=== PATIENT | female | born 1995 | race Two or more races ===

== ENCOUNTER 2020-01-08 17:16 | Outpatient (CLI) | payer OTHER, SELFPAY ==
--- NOTE | ~2020-01-08 | US_ITS ---
EXAMINATION: US OB <=14 wk fetus w TV EXAM DATE: 01/08/2020 18:56 INDICATION: Spontaneous . 1st trimester. TECHNIQUE: Pelvic obstetrical transabdominal sonogram was performed by a technologist. There are mu ltiple grayscale and Doppler images available for interpretation. There are no earlier studies of th is gestation for comparison. FINDINGS: The uterus measures 11.7 x 4.6 x 6.8 cm, with an intrauterine gestation sac identified whic h has a flattened shape. Yolk sac and pole are identified, but no heart tones were identi fied. No measurement of pole or gestation sac was obtained. If this information is needed then patient can return and an addendum added. Based on images available pole measures approximate ly 3 cm. The ovaries were not identified. IMPRESSION: demise. Reviewed, dictated and finalized at location A. IMPRESSION: demise.
== END 2020-01-08 17:17 | disposition home or self-care (01) ==
PROVIDERS: PCP Obstetrics & Gynecology; Visit Provider Obstetrics & Gynecology
DX: O03.9 Complete or unspecified spontaneous abortion without complication (principal)
CPT/HCPCS: 76801; 76817

== ENCOUNTER 2020-01-29 16:34 | Outpatient (CLI) | payer OTHER, SELFPAY ==
--- NOTE | ~2020-01-29 | US_ITS ---
EXAMINATION: US pelvic complete w TV DATE: 01/29/2020 17:21 INDICATION: Missed . TECHNIQUE: Multiple transabdominal and transvaginal sonographic images of the pelvis were obtained. COMPARISON: Ultrasound 01/08/2020 FINDINGS: TRANSABDOMINAL ULTRASOUND: The uterus measures 6.9 x 4.1 x 4.2 cm. There is no free fluid in the pelvis. TRANSVAGINAL ULTRASOUND: The endometrial complex measures 4 mm in thickness. There are nabothian cysts in the cervix. The righ t ovary measures 2.6 x 1.6 x 1.7 cm. The left ovary is not visualized. IMPRESSION: 1. No retained products of conception. Reviewed, dictated and finalized at location A. T WORKER
== END 2020-01-29 16:35 | disposition home or self-care (01) ==
PROVIDERS: Visit Provider Obstetrics & Gynecology
DX: O02.1 Missed abortion (principal)
CPT/HCPCS: 76830; 76856

== ENCOUNTER 2020-05-08 12:58 | Outpatient (CLI) | payer OTHER, SELFPAY ==
[2020-05-09 18:20] LABS: SARS-CoV-2 RNA PCR Negative
== END 2020-05-08 12:59 | disposition home or self-care (01) ==
LOC: CHSLAB 13:00
PROVIDERS: PCP Nurse Practitioner Family; Visit Provider Nurse Practitioner Family
DX: Z20.822 Contact with and (suspected) exposure to COVID-19 (principal)
CPT/HCPCS: C9803; U0003; U0005

== ENCOUNTER 2020-05-19 10:24 | Outpatient (CLI) | payer OTHER, SELFPAY ==
[2020-05-20 14:42] LABS: SARS-CoV-2 RNA PCR Negative
== END 2020-05-19 10:25 | disposition home or self-care (01) ==
PROVIDERS: PCP Nurse Practitioner Family; Visit Provider Nurse Practitioner Family
DX: Z20.822 Contact with and (suspected) exposure to COVID-19 (principal)
CPT/HCPCS: C9803; U0003; U0005

== ENCOUNTER 2020-12-23 09:25 | Outpatient (CLI) | payer OTHER, SELFPAY ==
[2020-12-23 10:38] LABS: SARS-CoV-2 RNA PCR Negative (Negative)
== END 2020-12-23 09:26 | disposition home or self-care (01) ==
LOC: CHSLAB 09:28
PROVIDERS: PCP Nurse Practitioner Family; Visit Provider Nurse Practitioner Family
DX: Z20.822 Contact with and (suspected) exposure to COVID-19 (principal)
CPT/HCPCS: C9803; U0003; U0005

== ENCOUNTER 2021-02-27 08:23 | Outpatient (CLI) | payer OTHER, SELFPAY ==
[2021-02-27 09:49] LABS: SARS-CoV-2 RNA PCR Negative (Negative)
== END 2021-02-27 08:24 | disposition home or self-care (01) ==
PROVIDERS: PCP Family Medicine; Visit Provider Family Medicine
DX: Z20.822 Contact with and (suspected) exposure to COVID-19 (principal)
CPT/HCPCS: C9803; U0003; U0005

== ENCOUNTER 2021-03-26 09:53 | Outpatient (CLI) | payer OTHER, SELFPAY ==
[2021-03-26 10:44] LABS: SARS-CoV-2 RNA PCR Positive (Negative)
== END 2021-03-26 09:54 | disposition home or self-care (01) ==
LOC: CHSLAB 09:56
PROVIDERS: PCP Nurse Practitioner Family; Visit Provider Nurse Practitioner Family
DX: U07.1 COVID-19 (principal)
CPT/HCPCS: C9803; U0003; U0005

== ENCOUNTER 2022-02-24 10:53 | Outpatient (CLI) | payer OTHER, SELFPAY ==
[2022-02-24 11:46] LABS: Influenza A QL RT-PCR Positive (Negative); Influenza B QL RT-PCR Negative (Negative); SARS-CoV-2 RNA PCR Negative (Negative)
[2022-02-24 11:52] LABS: Strep Group A RT-PCR Not Detected (Negative)
== END 2022-02-24 10:54 | disposition home or self-care (01) ==
LOC: CHSLAB 10:58
PROVIDERS: PCP Nurse Practitioner Family; Visit Provider Nurse Practitioner Family
DX: J02.9 Acute pharyngitis, unspecified (principal)
CPT/HCPCS: 87636; 87651

== ENCOUNTER 2022-10-22 12:27 | Outpatient (CLI) | payer OTHER, MEDICAID, SELFPAY ==
--- NOTE | ~2022-10-22 | US_ITS ---
EXAMINATION: US OB <=14 wk fetus w TV DATE: 10/22/2022 13:21 INDICATION: Gestational dating. TECHNIQUE: Real-time transabdominal obstetric ultrasound. FINDINGS: No prior studies for comparison. The uterus measures 12.3 x 7 x 5.9 cm. There is an intrauterine gestational sac, with pole iden tified. The crown rump length measures 2.5 cm, which correlates with a estimated gestational age of 9 weeks 3 day. heart tones are identified measuring 157 BPM. Right ovary is not visualized. L eft ovary is normal measuring 3.1 x 2.7 x 2.9 cm. IMPRESSION: 1. SL IUP with an EGA of 9 weeks, 3 days (EDC by current ultrasound of 05/24/2023). Reviewed, dictated and finalized at location A. IMPRESSION: 1. SL IUP with an EGA of 9 weeks, 3 days (EDC by current ultrasound of ).
== END 2022-10-22 12:28 | disposition home or self-care (01) ==
LOC: CHSIMG 12:29
PROVIDERS: PCP Nurse Practitioner Family; Visit Provider Registered Nurse
DX: N91.2 Amenorrhea, unspecified (principal); Z3A.09 9 weeks gestation of pregnancy
CPT/HCPCS: 76801; 76817

== ENCOUNTER 2022-11-11 09:14 | Outpatient (CLI) | payer OTHER, MEDICAID, SELFPAY ==
[2022-11-11 09:49] LABS: Basophils Percent Auto 0.3 % (0.2-1.2); Eosinophils Absolute Auto 0.2 K/mm3 (0-0.3); Hemoglobin 13.3 g/dL (12.0-15.0); Immature Granulocyte Absolute 0.02 K/mm3 (0.00-0.031); Immature Granulocyte Percent A 0.3 % (0-0.5); Lymphocytes Absolute Auto 1.77 K/mm3 (0.9-3.2); Lymphocytes Percent Auto 24.2 % (18.3-44.2); Mean Corpuscular HGB Conc 34.1 g/dl (32-36); Mean Corpuscular Hemoglobin 28.5 pg (26-34); Mean Corpuscular Volume 83.5 fl (80-100); Mean Platelet Volume 10.3 fl (7.4-10.4); Monocytes Absolute Auto 0.7 K/mm3 (0.1-0.6); Monocytes Percent Auto 9.3 % (2.6-8.5); Neutrophils Absolute Auto 4.7 K/mm3 (1.3-6.7); Neutrophils Percent Auto 63.9 % (45.5-73.1); Platelet Count Result 220 k/mm3 (150-375); Red Blood Count 4.67 M/mm3 (4.2-5.4); Red Cell Distribution Width 13.1 % (11.5-14.5); White Blood Count 7.3 K/mm3 (4.5-10.0)
[2022-11-11 10:41] LABS: HIV 1/2 Ab P24 Ag Result Negative (Negative)
[2022-11-11 10:51] LABS: Hepatitis B Surface Antigen Negative (Negative); Rubella IgG Antibody 10.8 IU/ML
[2022-11-11 11:07] LABS: Hepatitis C Virus Antibody Negative (Negative)
[2022-11-11 11:17] LABS: Vitamin D 25 Hydroxy 27.7 ng/mL
[2022-11-12 14:18] LABS: Rapid Plasma Reagin Non-Reactive (NonReactive)
[2022-11-17 17:10] LABS: Hematocrit 39.8 % (35.0-45.0); Hemoglobin 13.3 g/dL (11.7-15.5); MCH 28.2 pg (27.0-33.0); MCV 84.5 fL (80.0-100.0); RDW 13.3 % (11.0-15.0); Red Blood Cell Count 4.71 Mill/uL (3.80-5.10)
== END 2022-11-11 09:15 | disposition home or self-care (01) ==
PROVIDERS: PCP Nurse Practitioner Family; Visit Provider Obstetrics & Gynecology
DX: Z34.90 Encounter for supervision of normal pregnancy, unspecified, unspecified trimester (principal)
CPT/HCPCS: 36415; 82306; 83021; 83036; 84443; 85025; 86592; 86703; 86762; 86787; 86803; 86850; 86900; 86901; 87086; 87088; 87340; G0432

== ENCOUNTER 2022-12-13 10:54 | Outpatient (CLI) | payer OTHER, MEDICAID, SELFPAY ==
--- NOTE | ~2022-12-13 | US_ITS ---
EXAMINATION: US venous doppler [facility] DATE: 12/13/2022 11:54 INDICATION: Left lower limb swelling TECHNIQUE: Jett scale images without and with compression and Doppler images of the left lower extrem ity veins were obtained. COMPARISON: None FINDINGS: The left common femoral vein, profunda femoral vein, femoral vein, popliteal vein, peroneal trunk, posterior tibial veins, and greater saphenous vein are patent. IMPRESSION: 1. Patent left lower extremity veins. No evidence of deep venous thrombosis. Reviewed, dictated and finalized at location B.
== END 2022-12-13 10:55 | disposition home or self-care (01) ==
PROVIDERS: PCP Nurse Practitioner Family; Visit Provider Registered Nurse
DX: M79.89 Other specified soft tissue disorders (principal); R20.0 Anesthesia of skin
CPT/HCPCS: 93971

== ENCOUNTER 2023-01-06 15:00 | Outpatient (CLI) | payer OTHER, MEDICAID, SELFPAY ==
--- NOTE | 2023-01-06 15:11 | ECG_ITS ---
Measurements Intervals [place] Rate: 85 P: 12 WA: 129 QRS: 23 QRSD: 93 T: 10 QT: 362 QTc: 432 Interpretive Statements SINUS RHYTHM NORMAL ELECTROCARDIOGRAM NO PREVIOUS ECG AVAILABLE FOR COMPARISON Electronically Signed On 01-07-2023 7:24:43 CDT by Narinder Buckley M.D.
== END 2023-01-06 15:01 | disposition home or self-care (01) ==
LOC: ANHLAB 15:02 → ANHCARD 15:02
PROVIDERS: PCP Nurse Practitioner Family; Visit Provider Registered Nurse
DX: Z34.81 Encounter for supervision of other normal pregnancy, first trimester (principal); R55 Syncope and collapse
CPT/HCPCS: 93005

== ENCOUNTER 2023-01-17 14:05 | Outpatient (CLI) | payer MEDICAID, SELFPAY ==
--- NOTE | 2023-01-19 16:12 | WPDHOLTEREM ---
Holter/Event Monitor Holter/Event Monitor Date of procedure: 01/17/23 Holter/Event Procedure: 24 Hr Holter Monitor Indications: Syncope Conclusion: 1. 24 hour holter monitor on 01/17/23. 2. Underlying rhythm is sinus rhythm. HR range 58-140 bpm. HR at 140 bpm at 07:59. 3. There are 5 premature supraventricular complexes and 2 supraventricular couplets. No supraventricular tachycardia. 4. There are 56 premature ventricular complexes and 1 ventricular couplet. No ventricular tachycardia. 5. No sinoatrial or atrioventricular blocks. No significant pauses greater than 2 seconds. 6. No symptoms available for correlation.
== END 2023-01-17 14:06 | disposition home or self-care (01) ==
LOC: ANHCARD 14:06
PROVIDERS: PCP Nurse Practitioner Family; Visit Provider Registered Nurse
DX: R55 Syncope and collapse (principal)
CPT/HCPCS: 93225; 93226

== ENCOUNTER 2023-02-28 09:21 | Observation (INO) | payer OTHER, MEDICAID, SELFPAY ==
[2023-02-28] VITALS (7 sets, daily range): BP systolic 109–122; BP diastolic 67–76; PULSE 74–95
--- NOTE | 2023-02-28 11:22 | PC.NURSE ---
Dr Amaya informed of adm c/o of contractions when standing, that no contractions were noted or palpated while here. Ok to check cervix and if closed she may be dc's home.
--- NOTE | 2023-03-07 12:11 | PM.OBTRLD ---
OB - Triage/Final Diagnosis Visit Information Comments/Additional reasons for admission: I have assessed the risk for this patient, Nathalia Rangel, and determined that she would benefit from observation care. Final Diagnosis (1) Abdominal cramping affecting : Code(s): O26.899 - Other specified related conditions, unspecified trimester; R10.9 - Unspecified abdominal pain Status: Acute
== END 2023-02-28 11:38 | disposition home or self-care (01) ==
PROVIDERS: Admitting Provider Obstetrics & Gynecology; PCP Nurse Practitioner Family; Visit Provider Obstetrics & Gynecology
DX: O26.892 Other specified pregnancy related conditions, second trimester (principal); R10.9 Unspecified abdominal pain; Z3A.28 28 weeks gestation of pregnancy
CPT/HCPCS: G0378; G0379

== ENCOUNTER 2023-03-05 09:52 | Outpatient (CLI) | payer OTHER, MEDICAID, SELFPAY ==
[2023-03-05 11:20] LABS: Hematocrit 35.4 % (37.0-47.0); Hemoglobin 11.9 g/dL (12.0-15.0); Mean Corpuscular HGB Conc 33.6 g/dl (32-36); Mean Corpuscular Hemoglobin 28.6 pg (26-34); Mean Corpuscular Volume 85.1 fl (80-100); Mean Platelet Volume 10.4 fl (7.4-10.4); Platelet Count Result 200 k/mm3 (150-375); Red Blood Count 4.16 M/mm3 (4.2-5.4); Red Cell Distribution Width 13.2 % (11.5-14.5)
[2023-03-05 11:35] LABS: Glucose 1 Hour PP 50gm Dose 130 mg/dL
[2023-03-17 14:17] LABS: CF Result NEGATIVE (NEGATIVE); Ethnicity HISPANIC
== END 2023-03-05 09:53 | disposition home or self-care (01) ==
LOC: ANHLAB 09:55
PROVIDERS: PCP Nurse Practitioner Family; Visit Provider Obstetrics & Gynecology
DX: Z34.92 Encounter for supervision of normal pregnancy, unspecified, second trimester (principal)
CPT/HCPCS: 36415; 81220; 81243; 82947; 85027

== ENCOUNTER 2023-03-14 08:11 | Outpatient (CLI) | payer OTHER, MEDICAID, SELFPAY ==
[2023-03-14 08:42] LABS: Glucose Fasting Gestational 85 mg/dL (>/=95)
[2023-03-14 10:33] LABS: Glucose 1 Hour Gest 161 mg/dL (>/=180)
[2023-03-14 11:36] LABS: Glucose 2 Hour Gest 154 mg/dL (>/= 155)
[2023-03-14 12:12] LABS: Glucose 3 Hour Gest 125 mg/dL (>/=140)
== END 2023-03-14 08:12 | disposition home or self-care (01) ==
LOC: ANHLAB 08:13
PROVIDERS: PCP Nurse Practitioner Family; Visit Provider Obstetrics & Gynecology
DX: O99.810 Abnormal glucose complicating pregnancy (principal)
CPT/HCPCS: 36415; 82951; 82952

== ENCOUNTER 2023-03-19 16:54 | Emergency (ER) | payer OTHER, MEDICAID, SELFPAY ==
[2023-03-19 17:08] VITALS: BP 122/89; PULSE 94; RESP 18; TEMP 36.7; O2SAT 98
[2023-03-19 18:16] LABS: Strep Group A RT-PCR NOT DETECTED (Negative)
[2023-03-19 18:27] LABS: SARS-CoV-2 RNA PCR Negative (Negative)
[2023-03-19 18:28] LABS: Influenza A QL RT-PCR Negative (Negative); Influenza B QL RT-PCR Positive (Negative); RSV RNA, RT-PCR Negative (Negative)
--- NOTE | 2023-03-19 18:32 | ED.URI ---
HPI - URI/Sore Throat General Chief Complaint: Upper Respiratory Infection Stated Complaint: sore throat/nausea Source: patient and family Mode of arrival: ambulatory Limitations: no limitations History of Present Illness HPI Narrative: This is a 28-year-old that is 31 weeks that presents with cough congestion has had some wheezing with no history of asthma currently no fever no shortness of no nausea vomiting abdominal pain. MD elicited complaint: fever, cough, rhinorrhea and nasal congestion Onset (ago): day(s) Consistency: constant Severity: moderate Related Data Home Medications Medication Instructions Recorded Confirmed PNV 153-FA 400 mcg-om3 35 mg-dha 1 tablet PO DAILY 10/20/22 03/19/23 25 mg-epa 5 mg-fish oil chew tablet ( Gummies) ferric citrate 210 mg iron tablet 210 mg PO DAILY 10/20/22 03/19/23 (Auryxia) aspirin 81 mg tablet,delayed 81 mg PO DAILY 01/03/23 03/19/23 release (Adult Low Dose Aspirin) pyridoxine (vitamin B6) 25 mg 25 mg PO DAILY 01/03/23 03/19/23 tablet Allergies Allergy/AdvReac Type Severity Reaction Status Date / Time No Known Allergies Allergy Unknown Verified 03/19/23 17:20 Review of Systems Review of Systems: All systems reviewed & are unremarkable except as noted in HPI and below PMFSH Past Medical History Medical History Amenorrhea Exposure to COVID-19 virus Hordeolum externum left upper eyelid Hypertension Missed Surgical History Surgical History H/O foot surgery History of delivery 2013 Social History Social History Smoking status: Never smoker Second hand tobacco smoke exposure: No Alcohol intake: never Substance use: never Lack of Transportation: No Lack of Food: Never True Current Housing: I Have Housing Concerned About Future Housing: No Difficulty Paying Gas/Electric Bills: No Difficulty Paying for Meds: No Currently Unemployed: No Education: High School Diploma/GED Difficulty w/ Childcare or Family Care: No Living arrangements: with family Occupation/Education: occupation Gender identity (if verbalized by the patient): Female Sexual Orientation (if Verbalized by the Patient): Straight or Heterosexual Spiritual care concerns: No Exam Const: General: no acute distress Nutritional Appearance: well nourished Orientation/consciousness: patient oriented x3 Limitations: no limitations HENMT: Other: Cough congestion Neck: Neck: normal visual inspection Chest: Chest palpation & inspection: normal inspection of the chest Resp: Effort & Inspection: normal respiratory effort Auscultation: clear to auscultation bilaterally Cardio: Rate: regular rate Rhythm: regular rhythm Course Course Emergency Course: patient is 30 weeks and is negative for strep and for COVID but has tested positive for influenza B and will prescribe Tamiflu the patient can start. Vital Signs Vital signs: Vital Signs Temperature 36.7 C 03/19/23 17:08 Pulse Rate 94 03/19/23 17:08 Respiratory Rate 18 03/19/23 17:08 Blood Pressure 122/89 03/19/23 17:08 Pulse Oximetry 98 03/19/23 17:08 Oxygen Delivery Room Air 03/19/23 17:08 Temperature 36.7 C 03/19/23 17:08 Pulse Rate 94 03/19/23 17:08 Respiratory Rate 18 03/19/23 17:08 Blood Pressure 122/89 03/19/23 17:08 Pulse Oximetry 98 03/19/23 17:08 Oxygen Delivery Room Air 03/19/23 17:08 MDM - URI/Sore Throat Lab Data Labs: Lab Results 03/19/23 Range/Units 17:29 Influenza A (RT-PCR) Negative (Negative) Influenza B (RT-PCR) Positive A (Negative) RSV (RT-PCR) Negative (Negative) SARS-CoV-2 RNA (RT-PCR) Negative (Negative) Group A Strep (PCR) Not detected (Negative) Critical Care Time
[2023-03-19 18:41] VITALS: BP 125/80; PULSE 79; RESP 20; TEMP 36.7; O2SAT 98
== END 2023-03-19 18:49 | disposition home or self-care (01) ==
PROVIDERS: Emergency Provider Emergency Medicine; PCP Nurse Practitioner Family
DX: O26.893 Other specified pregnancy related conditions, third trimester (principal); J11.1 Influenza due to unidentified influenza virus with other respiratory manifestations; O16.3 Unspecified maternal hypertension, third trimester; Z79.899 Other long term (current) drug therapy; Z79.82 Long term (current) use of aspirin; Z3A.30 30 weeks gestation of pregnancy
CPT/HCPCS: 87637; 87651; 99283

== ENCOUNTER 2023-03-23 10:54 | Outpatient (CLI) | payer OTHER, MEDICAID, SELFPAY ==
[2023-03-23 12:14] VITALS: BP 122/81; PULSE 93
== END 2023-03-23 12:16 | disposition home or self-care (01) ==
LOC: ANHOBOP 12:18
PROVIDERS: PCP Nurse Practitioner Family; Visit Provider Obstetrics & Gynecology
DX: O42.90 Premature rupture of membranes, unspecified as to length of time between rupture and onset of labor, unspecified weeks of gestation (principal); Z3A.00 Weeks of gestation of pregnancy not specified
CPT/HCPCS: 59025; 84112

== ENCOUNTER 2023-03-29 08:56 | Emergency (ER) | payer SELFPAY ==
[2023-03-29 08:56] VITALS: BP 129/87; PULSE 98; RESP 17; TEMP 36.8; O2SAT 98
--- NOTE | 2023-03-29 09:29 | ED.GENADULT ---
HPI - General Adult General Chief complaint: Ear Stated complaint: left ear pain. Time Seen by Provider: 03/29/23 09:28 Source: patient Mode of arrival: ambulatory Limitations: no limitations History of Present Illness HPI narrative: 28-year-old female 32 weeks intrauterine complains left earache since last night. She is positive for flu last week and got Tamiflu after having flu symptoms for a week before that. Denies any cough or any other pain elsewhere the baby is moving. Denies any bleeding or bruising swelling lumps or bumps cough fever sore throat runny nose problems eating or drinking voiding or stooling or any other complaints. Related Data Home Medications Medication Instructions Recorded Confirmed PNV 153-FA 400 mcg-om3 35 mg-dha 1 tablet PO DAILY 10/20/22 04/20/23 25 mg-epa 5 mg-fish oil chew tablet ( Gummies) ferric citrate 210 mg iron tablet 210 mg PO DAILY 10/20/22 04/20/23 (Auryxia) aspirin 81 mg tablet,delayed 81 mg PO DAILY 01/03/23 04/20/23 release (Adult Low Dose Aspirin) pyridoxine (vitamin B6) 25 mg 25 mg PO DAILY 01/03/23 04/20/23 tablet Allergies Allergy/AdvReac Type Severity Reaction Status Date / Time No Known Allergies Allergy Unknown Verified 04/20/23 12:42 Review of Systems Review of Systems: All systems reviewed & are unremarkable except as noted in HPI and below PMFSH Past Medical History Medical History Amenorrhea Exposure to COVID-19 virus Hordeolum externum left upper eyelid Hypertension Missed Surgical History Surgical History H/O foot surgery History of delivery 2013 Social History Social History Smoking status: Never smoker Second hand tobacco smoke exposure: No Alcohol intake: never Substance use: never Lack of Transportation: No Lack of Food: Never True Current Housing: I Have Housing Concerned About Future Housing: No Difficulty Paying Gas/Electric Bills: No Difficulty Paying for Meds: No Currently Unemployed: No Education: High School Diploma/GED Difficulty w/ Childcare or Family Care: No Living arrangements: with family Occupation/Education: occupation Gender identity (if verbalized by the patient): Female Sexual Orientation (if Verbalized by the Patient): Straight or Heterosexual Spiritual care concerns: No Exam Narrative: female no apparent distress.? Head:? Normocephalic atraumatic.? Eyes conjunctiva pink sclera nonicteric.? Ears TM Right was normal left bulging with loss of landmarks consistent with acute otitis media.? Oropharynx is clear with moist mucous membranes no exudates.? Neck is supple no lymphadenopathy nontender full range of motion.? Back is nontender.? Chest nontender.? Lungs are clear without wheezes rales or rhonchi.? Heart is regular rate rhythm without murmurs gallops or rubs.? Abdomen Gravid consistent with 32 week intrauterine . soft and nontender no hepatosplenomegaly or masses no CVA tenderness no abdominal bruits.? Extremities no cyanosis clubbing or edema.? Neurological she is alert and oriented x4 motor and sensory grossly intact.? Skin is warm and dry without lesions. heart tones 128 on Doppler Course Vital Signs Vital signs: Vital Signs Temperature 36.8 C 03/29/23 08:56 Pulse Rate 98 03/29/23 08:56 Respiratory Rate 17 03/29/23 08:56 Blood Pressure 129/87 03/29/23 08:56 Pulse Oximetry 98 03/29/23 08:56 Oxygen Delivery Room Air 03/29/23 08:56 Temperature 36.8 C 03/29/23 09:59 Pulse Rate 98 03/29/23 09:59 Respiratory Rate 17 03/29/23 09:59 Blood Pressure 129/87 03/29/23 09:59 Pulse Oximetry 98 03/29/23 09:59 Oxygen Delivery Room Air 03/29/23 09:59 Medical Decision Making MDM Narrative Medic
[2023-03-29 09:59] VITALS: BP 129/87; PULSE 98; RESP 17; TEMP 36.8; O2SAT 98
== END 2023-03-29 09:59 | disposition home or self-care (01) ==
PROVIDERS: Emergency Provider Emergency Medicine; PCP Nurse Practitioner Family
DX: O26.893 Other specified pregnancy related conditions, third trimester (principal); H66.92 Otitis media, unspecified, left ear; Z79.899 Other long term (current) drug therapy; Z79.82 Long term (current) use of aspirin; Z3A.32 32 weeks gestation of pregnancy
CPT/HCPCS: 99281

== ENCOUNTER 2023-04-07 09:20 | Outpatient (CLI) | payer SELFPAY ==
[2023-04-07 09:56] LABS: Basophils Absolute Auto 0.1 K/mm3 (0.0-0.1); Basophils Percent Auto 0.5 % (0.2-1.2); Eosinophils Absolute Auto 0.1 K/mm3 (0-0.3); Eosinophils Percent Auto 1.1 % (0-4.4); Hematocrit 36.4 % (37.0-47.0); Hemoglobin 11.9 g/dL (12.0-15.0); Immature Granulocyte Percent A 0.9 % (0-0.5); Lymphocytes Absolute Auto 1.61 K/mm3 (0.9-3.2); Lymphocytes Percent Auto 15.2 % (18.3-44.2); Mean Corpuscular HGB Conc 32.7 g/dl (32-36); Mean Corpuscular Hemoglobin 27.9 pg (26-34); Mean Corpuscular Volume 85.4 fl (80-100); Mean Platelet Volume 11.2 fl (7.4-10.4); Monocytes Absolute Auto 0.8 K/mm3 (0.1-0.6); Monocytes Percent Auto 7.9 % (2.6-8.5); Neutrophils Absolute Auto 7.9 K/mm3 (1.3-6.7); Neutrophils Percent Auto 74.4 % (45.5-73.1); Platelet Count Result 230 k/mm3 (150-375); Red Blood Count 4.26 M/mm3 (4.2-5.4); Red Cell Distribution Width 13.8 % (11.5-14.5); White Blood Count 10.6 K/mm3 (4.5-10.0)
[2023-04-07 10:51] LABS: HIV 1/2 Ab P24 Ag Result Negative (Negative)
[2023-04-07 16:56] LABS: Rapid Plasma Reagin Non-Reactive (NonReactive)
== END 2023-04-07 09:21 | disposition home or self-care (01) ==
PROVIDERS: PCP Nurse Practitioner Family; Visit Provider Registered Nurse
DX: Z34.83 Encounter for supervision of other normal pregnancy, third trimester (principal)
CPT/HCPCS: 36415; 85025; 86592; 86703; G0432

== ENCOUNTER 2023-04-20 13:19 | Observation (INO) | payer SELFPAY ==
[2023-04-20] VITALS (7 sets, daily range): BP systolic 108–122; BP diastolic 59–89; PULSE 88–111
--- NOTE | ~2023-04-20 | US_ITS ---
EXAMINATION: US OB BPP wo non-stress DATE: 04/20/2023 15:15 INDICATION: Decreased movement. TECHNIQUE: Real-time pelvic ultrasound was performed. COMPARISON: Ultrasound 10/22/2022 FINDINGS: There is a single living fetus in vertex presentation. The placenta is posterior. heart rate i s 147 beats per minute (bpm). Biophysical profile performed by the technologist: breathing (30 sec sustained breathing in 30 minutes): 2 out of 2 movement (3 gross body movements in 30 minutes): 2 out of 2 tone (one episode of relcvcp-aqkctxjox-eamjyur limb movement): 2 out of 2 Amniotic fluid pocket (2 cm): 2 out of 2 Total score: 8 out of 8 IMPRESSION: 1. Single living fetus in vertex presentation. 2. Biophysical profile 8 out of 8. Reviewed, dictated and finalized at location E. ONAL BANKING ASSISTANT
--- NOTE | 2023-05-17 11:45 | PM.OBTRLD ---
OB - Triage/Final Diagnosis Visit Information Comments/Additional reasons for admission: I have assessed the risk for this patient, Nathalia Rangel, and determined that she would benefit from observation care. Final Diagnosis (1) Abdominal cramping affecting : Code(s): O26.899 - Other specified related conditions, unspecified trimester; R10.9 - Unspecified abdominal pain Status: Acute (2) Near syncope: Code(s): R55 - Syncope and collapse Status: Acute
== END 2023-04-20 15:45 | disposition home or self-care (01) ==
PROVIDERS: Admitting Provider Obstetrics & Gynecology; PCP Nurse Practitioner Family; Visit Provider Obstetrics & Gynecology
DX: O26.899 Other specified pregnancy related conditions, unspecified trimester (principal); R10.9 Unspecified abdominal pain; R55 Syncope and collapse; Z3A.00 Weeks of gestation of pregnancy not specified
CPT/HCPCS: 59025; 76819; G0378; G0379

== ENCOUNTER 2023-04-29 08:12 | Observation (INO) | payer OTHER, MEDICAID, SELFPAY ==
[2023-04-29] VITALS (11 sets, daily range): BP systolic 115–128; BP diastolic 78–81; PULSE 72–87; RESP 18; TEMP 36.8; O2SAT 96–100; BMI 40.4
--- NOTE | ~2023-04-29 | US_ITS ---
EXAMINATION: US OB limited w BPP DATE: 04/29/2023 11:47 INDICATION: heart rate deceleration. Third trimester. TECHNIQUE: Real-time pelvic ultrasound was performed. COMPARISON: Ultrasound 04/20/2023 FINDINGS: There is a single living fetus in vertex presentation. The placenta is posterior. heart rate i s 147 beats per minute (bpm). The amniotic fluid index is 9.4 cm, which is normal. Biophysical profile performed by the technologist: breathing (30 sec sustained breathing in 30 minutes): 2 out of 2 movement (3 gross body movements in 30 minutes): 2 out of 2 tone (one episode of qlgdtmj-jnkbzrmlp-xkukpke limb movement): 2 out of 2 Amniotic fluid pocket (2 cm): 2 out of 2 Total score: 8 out of 8 IMPRESSION: 1. Single living fetus in vertex presentation. 2. Biophysical profile 8 out of 8. Reviewed, dictated and finalized at location A. WARPER TENDER
--- NOTE | 2023-04-29 09:15 | OBADM ---
This patient, Nathalia Rangel, admitted to the OB room OB Post 117 for observation. Patient/family oriented to hospital policies and general routines including ID bracelet, bed and alarms, visiting hours, pain management, procedures, bathroom and other care routines, personal items, smoking policy, room service/diet, and visiting hours. Patient/Family are encouraged to report perceived risks to care and to ask questions if they do not understand what they are told or what they should do.
[2023-04-29 09:35] LABS: Appearance Urine Clear (Clear); Bacteria Urine None Seen /hpf; Bilirubin Urine Negative (Negative); Blood Urine Negative (Negative); Color Urine Yellow (Yellow); Glucose Urine UA Negative (Negative); Ketones Urine Negative (Negative); Leukocyte Esterase Ur Trace LEU/UL (Negative); Nitrate Urine Negative (Negative); Non Pathogenic Casts 0-2; Protein Urine Negative (Negative); RBC Urine 0-2 /hpf (0-2); Specific Grav Ur 1.013 (1.001-1.035); Squamous Epithelial Cell Urine Occasional /hpf (Few); WBC Urine 0-5 /hpf
[2023-04-29 09:41] LABS: Add Urine Microscopic? YES
--- NOTE | 2023-05-25 10:42 | PM.OBTRLD ---
OB - Triage/Final Diagnosis Visit Information Comments/Additional reasons for admission: I have assessed the risk for this patient, Nathalia Rangel, and determined that she would benefit from observation care. Evaluation Laboratory results: Laboratory Tests 04/29/23 09:13 Urine Color Yellow Urine Appearance Clear Urine pH 7.0 Ur Specific [place] 1.013 Urine Protein Negative Urine Glucose (UA) Negative Urine Ketones Negative Ur Blood (Man) Negative Urine Nitrate Negative Urine Bilirubin Negative Urine Urobilinogen 1.0 Leukocyte Esterase Rfl Trace H Urine RBC 0-2 Urine WBC 0-5 Ur Squamous Epith Cells Occasional Urine Bacteria None seen Urine Casts 0-2 Final Diagnosis (1) Spotting affecting , antepartum: Code(s): O26.859 - Spotting complicating , unspecified trimester Status: Acute
== END 2023-04-29 12:52 | disposition home or self-care (01) ==
PROVIDERS: Obstetrics & Gynecology; Admitting Provider Obstetrics & Gynecology; PCP Nurse Practitioner Family; Visit Provider Obstetrics & Gynecology
DX: O26.853 Spotting complicating pregnancy, third trimester (principal); Z3A.36 36 weeks gestation of pregnancy
CPT/HCPCS: 76815; 76819; 81001; 84112; G0378; G0379

== ENCOUNTER 2023-05-17 10:21 | Outpatient (RCR) | payer OTHER, MEDICAID, SELFPAY ==
--- NOTE | 2023-05-04 09:07 | ECG_ITS ---
Measurements Intervals [place] Rate: 72 P: 3 GA: 136 QRS: 11 QRSD: 94 T: 14 QT: 354 QTc: 389 Interpretive Statements SINUS RHYTHM COMPARED TO ECG 01/06/2023 15:16:05 NO SIGNIFICANT CHANGES Electronically Signed On 05-04-2023 15:33:35 MAT CLEANING MACHINE OPERATOR by Ruby Bhatia M.D.
[2023-05-04 09:45] VITALS: BP 113/80; PULSE 90
--- NOTE | 2023-05-04 10:35 | PC.NURSE ---
BPP 8/8 and EKG showed normal sinus rhythm. Pt taken to Dr. Amaya's office to obtain paperwork for being off work.
--- NOTE | ~2023-05-17 | US_ITS ---
EXAMINATION: US OB BPP wo non-stress DATE: 05/17/2023 11:33 INDICATION: Variable cardiac decelerations on in office evaluation. Assess biophysical profile. TECHNIQUE: Real-time pelvic ultrasound was performed. The interpreting radiologist was not present fo r the study. COMPARISON: None. FINDINGS: There is a single living fetus in vertex presentation. The placenta is posterior. heart rate i s 171 beats per minute (bpm). Deepest amniotic vertical pocket of 3.4 cm. Biophysical profile performed by the technologist: breathing (30 sec sustained breathing in 30 minutes): 2 out of 2 movement (3 gross body movements in 30 minutes): 2 out of 2 tone (one episode of vhefoux-ethtgaacr-duuqfft limb movement): 2 out of 2 Amniotic fluid pocket (2 cm): 2 out of 2 Total score: 8 out of 8 IMPRESSION: 1. Single living fetus in vertex presentation with heart rate of 171 bpm. 2. Biophysical profile 8 out of 8. Reviewed, dictated and finalized at location A. KER DRIVER
--- NOTE | ~2023-05-17 | US_ITS ---
EXAMINATION: US OB BPP wo non-stress DATE: 05/04/2023 10:19 INDICATION: Decreased movement during third trimester TECHNIQUE: Real-time pelvic ultrasound was performed. The interpreting radiologist was not present fo r the study. COMPARISON: 04/29/2023 FINDINGS: There is a single living fetus in vertex presentation. The placenta is posterior. heart rate is 148 beats per minute (bpm). Biophysical profile performed by the technologist: breathing (30 sec sustained breathing in 30 minutes): 2 out of 2 movement (3 gross body movements in 30 minutes): 2 out of 2 tone (one episode of jxrcdjm-cjpnutwph-secbkch limb movement): 2 out of 2 Amniotic fluid pocket (2 cm): 2 out of 2 Total score: 8 out of 8 IMPRESSION: 1. Single living fetus in vertex presentation. 2. Biophysical profile 8 out of 8. Reviewed, dictated and finalized at location B. SIFIED AD TAKER
[2023-05-17 12:00] VITALS: BP 129/81; PULSE 60
== END 2023-08-02 23:59 | disposition home or self-care (01) ==
LOC: ANHOBOP 10:21
PROVIDERS: PCP Nurse Practitioner Family; Visit Provider Obstetrics & Gynecology
DX: O36.8130 Decreased fetal movements, third trimester, not applicable or unspecified (principal); R42 Dizziness and giddiness; Z3A.37 37 weeks gestation of pregnancy; Z3A.39 39 weeks gestation of pregnancy
CPT/HCPCS: 59025; 76819; 93005

== ENCOUNTER 2023-05-19 10:49 | Outpatient (CLI) | payer OTHER, MEDICAID, SELFPAY ==
[2023-05-19 11:21] LABS: Hematocrit 36.4 % (37.0-47.0); Hemoglobin 11.9 g/dL (12.0-15.0); Mean Corpuscular HGB Conc 32.7 g/dl (32-36); Mean Corpuscular Hemoglobin 26.7 pg (26-34); Mean Corpuscular Volume 81.8 fl (80-100); Mean Platelet Volume 11.3 fl (7.4-10.4); Platelet Count Result 222 k/mm3 (150-375); Red Blood Count 4.45 M/mm3 (4.2-5.4); Red Cell Distribution Width 13.7 % (11.5-14.5); White Blood Count 9.9 K/mm3 (4.5-10.0)
[2023-05-19 12:59] LABS: Rapid Plasma Reagin Non-Reactive (NonReactive)
== END 2023-05-19 10:50 | disposition home or self-care (01) ==
LOC: ANHLAB 10:51
PROVIDERS: PCP Nurse Practitioner Family; Visit Provider Obstetrics & Gynecology
DX: Z01.818 Encounter for other preprocedural examination (principal)
CPT/HCPCS: 36415; 85027; 86592; 86850; 86900; 86901

== ENCOUNTER 2023-05-20 09:44 | Inpatient (IN) | payer MEDICAID, SELFPAY ==
[2023-05-20] VITALS (48 sets, daily range): BP systolic 89–131; BP diastolic 55–96; PULSE 57–148; RESP 16–18; TEMP 36.3–36.8; O2SAT 97–100; BMI 42.1
--- NOTE | 2023-05-20 08:56 | PM.IMHP ---
H&P: HPI History of Present Illness Date/Time: 05/20/23 08:56 Chief Complaint: Elective repeat section and undesired fertility Narrative: Pt is a at 39 4/7 admitted for elective repeat section and sterilization due to undesired fertility. She declines all other forms of contraception. PNC significant history of anxiety/PTSD. Anxiety improved with Sertraline. She has history of gestational hypertension with previous , she was on baby aspirin. No hypertension during this . She had cardiology evaluation for symptoms and evaluation was normal. She has been counseled regarding risk benefits of sterilization and method which will be determined at time of procedure. She continues strongly desire sterilization. Review of Systems Review of Systems: All systems reviewed & are unremarkable except as noted in HPI and below Constitutional: Constitutional: Reports no additional constitutional complaints and Denies headache(s) Eyes: Eyes: Denies spots in vision ENT: Reports system reviewed and no additional complaints, except as documented and Denies headache(s) Cardiovascular: Cardiovascular: Denies chest pain and Denies dyspnea Respiratory: Respiratory: Denies dyspnea Gastrointestinal: Gastrointestinal: Reports no additional gastrointestinal complaints Genitourinary: Genitourinary: Reports amenorrhea Musculoskeletal: Musculoskeletal: Reports no additional musculoskeletal complaints Integumentary/Breasts: Skin/Breast: Denies breast mass and Denies rash Neurologic: Denies headache(s) Psychiatric: Psychiatric: Reports no additional psychiatric complaints [facility] Past Medical History Medical History Amenorrhea Exposure to COVID-19 virus Hordeolum externum left upper eyelid Hypertension Missed Surgical History Surgical History H/O foot surgery History of delivery 2014 Family History Family History Other Adopted Social History Social History Smoking status: Never smoker Second hand tobacco smoke exposure: No Alcohol intake: never Substance use: never Do You Feel Safe in your Home?: Yes Lack of Transportation: No Lack of Food: Never True Current Housing: I Have Housing Concerned About Future Housing: No Difficulty Paying Gas/Electric Bills: No Difficulty Paying for Meds: No Currently Unemployed: No Education: High School Diploma/GED Difficulty w/ Childcare or Family Care: No Living arrangements: with family Occupation/Education: occupation Gender identity (if verbalized by the patient): Female Sexual Orientation (if Verbalized by the Patient): Straight or Heterosexual Spiritual care concerns: No Meds Home Medications and Allergies Home Medications Medication Instructions Recorded Confirmed Type PNV 153-FA 400 mcg-om3 35 mg-dha 1 tablet PO DAILY 10/20/22 05/05/23 History 25 mg-epa 5 mg-fish oil chew tablet ( Gummies) ferric citrate 210 mg iron tablet 210 mg PO DAILY 10/20/22 05/05/23 History (Auryxia) aspirin 81 mg tablet,delayed 81 mg PO DAILY 01/03/23 05/05/23 History release (Adult Low Dose Aspirin) pyridoxine (vitamin B6) 25 mg 25 mg PO DAILY 01/03/23 05/05/23 History tablet sertraline 50 mg tablet 50 mg PO DAILY #90 tabs 03/30/23 05/05/23 Rx doxylamine succinate 25 mg tablet 25 mg PO QHS PRN 05/05/23 05/05/23 History (Unisom (doxylamine)) Allergies Allergy/AdvReac Type Severity Reaction Status Date / Time No Known Allergies Allergy Unknown Verified 05/17/23 09:45 Exam Const: General: no acute distress Eyes: General: appearance normal, both eyes and all related structures Resp: Effort & Inspection: normal respiratory effort Cardio: Rate: r
[2023-05-20] MEDS: ACETAMINOPHEN 500 MG TABLET 1000 MG PO (10:27)
[2023-05-20] MEDS: LACTATED RINGERS 1,000 ML 125 ML IV CONT ×3 (10:29→15:00)
--- NOTE | 2023-05-20 11:34 | PC.NURSE ---
Called Dr Amaya at 11:33 to give an update regarding scheduled at noon. Scheduled pushed back due to laboring patient needs .
--- NOTE | 2023-05-20 13:18 | WPDANESEPPF ---
Anes - Initial Pre Proc Eval Procedure: Operation Date: 05/20/23 12:00 Proposed Procedures p Repeat Section with Bilateral Tubal Sterilization - Sudhakar Amaya MD Date/Time: 05/20/23 13:18 Surgeon: Sudhakar Amaya MD Pre Op Diagnosis: C/Section Patient Data Age: 28 Gender: F Height: 1.6 m Weight: 108 kg Last Vital Signs Pulse 75 05/20/23 10:27 BP 128/89 05/20/23 10:27 O2 Del Method Room Air 05/20/23 10:37 Allergies Allergy/AdvReac Type Severity Reaction Status Date / Time No Known Allergies Allergy Unknown Verified 05/17/23 09:45 Home Medications Medication Instructions Recorded Confirmed Type PNV 153-FA 400 mcg-om3 35 mg-dha 1 tablet PO DAILY 10/20/22 05/20/23 History 25 mg-epa 5 mg-fish oil chew tablet ( Gummies) ferric citrate 210 mg iron tablet 210 mg PO DAILY 10/20/22 05/20/23 History (Auryxia) aspirin 81 mg tablet,delayed 81 mg PO DAILY 01/03/23 05/20/23 History release (Adult Low Dose Aspirin) pyridoxine (vitamin B6) 25 mg 25 mg PO DAILY 01/03/23 05/20/23 History tablet sertraline 50 mg tablet 50 mg PO DAILY #90 tabs 03/30/23 05/20/23 Rx doxylamine succinate 25 mg tablet 25 mg PO QHS PRN Sleep 05/05/23 05/20/23 History (Unisom (doxylamine)) famotidine 10 mg tablet (Pepcid AC) 10 mg PO DAILY PRN Indigestion 05/20/23 05/20/23 History Patient hx anesthesia problems: none Family hx anesthesia problems: none Results Review: All pre-operative results and documents have been reviewed as part of the pre-operative evaluation. [facility] Past Medical History Medical History Amenorrhea Exposure to COVID-19 virus Hordeolum externum left upper eyelid Hypertension Missed Surgical History Surgical History H/O foot surgery History of delivery 2013 Family History Family History Other Adopted Social History Social History Smoking status: Never smoker Second hand tobacco smoke exposure: No Alcohol intake: never Substance use: never Do You Feel Safe in your Home?: Yes Lack of Transportation: No Lack of Food: Never True Current Housing: I Have Housing Concerned About Future Housing: No Difficulty Paying Gas/Electric Bills: No Difficulty Paying for Meds: No Currently Unemployed: No Education: High School Diploma/GED Difficulty w/ Childcare or Family Care: No Living arrangements: with family Occupation/Education: occupation Gender identity (if verbalized by the patient): Female Sexual Orientation (if Verbalized by the Patient): Straight or Heterosexual Spiritual care concerns: No Anes - Eval Final PreProcedure Day of Procedure 05/20/23 13:18 Patient weight: morbidly obese Heart: regular rate and rhythm Lungs: clear to auscultation Airway: Mallampati scale class 1 Neurological: alert and oriented Last oral intake: >/= 8 hours ASA classification: III Emergent: no Anesthetic plan: proceed Anesthesia type and monitoring: regional spinal and standard monitoring Results Review: All pre-operative results and documents have been reviewed as part of the pre-operative evaluation. Informed Consent: The patient's anesthetic plan and its attendant risks and benefits were discussed with the patient/family/POA. Questions were solicited and answers provided to the satisfaction of the patient/family/POA.
[2023-05-20] MEDS: FAMOTIDINE 20 MG/2 ML VIAL IV PUSH (13:38)
[2023-05-20] MEDS: ONDANSETRON INJ 4 MG/2 ML VIAL IV PUSH (13:38)
[2023-05-20] MEDS: ceFAZolin 2 GM/D5W 50 ML 2 GM/50 ML BAG IVPB (14:01)
--- NOTE | 2023-05-20 15:26 | W.PM.PROC2 ---
Procedure Note - Detailed Date of Procedure 05/20/23 Pre-op Diagnosis Elective section Undesired fertility Post-op Diagnosis Same Procedure Performed Repeat low transverse section Bilateral salpingectomy Surgeon Sudhakar Amaya MD Anesthesia Spinal Indications Elective repeat section and undesired fertility. Findings Female , 9lb3oz, apgars 8,9, normal uterus and fallopian tubes and ovaries Description of Procedure After informed consent, risks and benefits of the procedure was discussed with the patient. The patient was taken to the operating room where she was placed in the dorsal lithotomy position with leftward tilt position after the spinal analgesia was administered. A Pfannenstiel skin incision was made with a scalpel and carried through to the underlying layer of fascia. The fascia was then nicked in the midline, extending bilaterally. The scarred fascia was dissected off the rectus muscles bluntly and sharply, superiorly and inferiorly. The rectus muscles were in the midline, and peritoneum was identified and entered bluntly. The pelvic organs were visualized. The bladder blade was then inserted. The vesicouterine peritoneum was identified and entered sharply with Metzenbaum scissors and extended bilaterally and then the bladder flap was created digitally. The low transverse uterine incision was then made with the scalpel and extended with bandage scissors on the left and then index fingers in a crescent-shaped fashion for extension of the incision, the amniotic cavity entered, clear fluid noted. The head was delivered and the rest of the was delivered. The head was in OT position. The nose and mouth suctioned. The cord was clamped twice and cut. There was noted to be terminal meconium. The infant was then handed off to the awaiting pediatric staff. The placenta was then delivered manually. The uterine cavity was sponge curetted. The uterus was then exteriorized. The uterine incision was then closed with 0 vicryl in a running locked fashion. A figure of eight of 0 vicryl at the right of incision was used for hemostasis. Hemostasis noted. A second layer of 0 vicryl was used in an imbricating fashion for hemostasis. An additional figure of eight stitch of 0 vicryl used for hemostasis. Hemostasis noted. The uterus was then returned to the abdomen. Bilateral gutters were cleared off all clots and debris. The uterine incision was noted to be hemostatic. The muscle bellies were inspected and noted to be hemostatic. The subfascial layer was noted to be hemostatic, and the fascia was closed with 0 Vicryl in a running fashion x 2. The subcutaneous layer was irrigated and then approximated with 3-0 Vicryl. The skin was closed with Ensorb drew. Skin dermabond applied at incision. All instruments, needle, and lap counts were correct x3. The patient was taken to the recovery room in stable condition. Estimated Blood Loss 550 Drains No Packing No Pathology Yes (right and left fallopian tube) Complications No immediate complications Condition Stable Disposition Floor [facility] Billing Surgery - Charge Forward: Surgery Billing
--- NOTE | 2023-05-20 15:27 | W.PM.OBCSD ---
OB - Delivery Note Procedure Delivery date: 05/20/23 Pre-op diagnosis: Other (Elective repeat section 2. Undesired fertility) Post-op Diagnosis: Same Prior to decision for section, ACOG/SMFM labor guidelines were considered and discussed with the patient and staff. Decision made to proceed with the section.: Yes Procedure Performed: Repeat Surgeon: Sudhakar Amaya MD Anesthesia type: Spinal Description of Procedure/Findings: Normal uterus fallopian tubes and ovaries, female 9lb 3oz, apgars 8,9, terminal meconium Specimen: No Estimated Blood Loss: 550 Drains: No Packing: No Pathology: Yes (right and left fallopian tube) Complications: No immediate complications Condition: Stable Disposition: Floor Baby Date of : 05/20/23 Weeks of gestation at delivery: 39 Infant gender: Female Weight (pounds): 9 Weight (ounces): 3 presentation: vertex position: Left Occiput Transverse Placenta delivery description: Manual Removal and Normal Configuration Cord Vessel Description: 3 Vessels and Clamped/Cut score one minute: 8 score five minutes: 9
[2023-05-20] MEDS: OXYTOCIN 30 UNITS/NS 500 ML 30 UNITS/500 ML BAG 125 UNITS IV CONT (16:14)
[2023-05-20] MEDS: ACETAMINOPHEN 325 MG TABLET 650 MG PO (21:00)
[2023-05-20] MEDS: DOCUSATE SODIUM 100 MG CAPSULE PO (21:00)
[2023-05-20] MEDS: KETOROLAC 15 MG/ML VIAL (*BKC) IV PUSH (21:00)
[2023-05-21] MEDS: ACETAMINOPHEN 325 MG TABLET 650 MG PO ×4 (03:10→21:58)
[2023-05-21] MEDS: KETOROLAC 15 MG/ML VIAL (*BKC) IV PUSH ×3 (03:10→16:05)
[2023-05-21 04:00] VITALS: BP 112/69; PULSE 81; RESP 18; TEMP 36.7; O2SAT 100
[2023-05-21 05:15] LABS: Basophils Percent Auto 0.4 % (0.2-1.2); Eosinophils Absolute Auto 0.1 K/mm3 (0-0.3); Eosinophils Percent Auto 1.5 % (0-4.4); Hematocrit 31.7 % (37.0-47.0); Hemoglobin 10.1 g/dL (12.0-15.0); Immature Granulocyte Absolute 0.05 K/mm3 (0.00-0.031); Immature Granulocyte Percent A 0.5 % (0-0.5); Lymphocytes Absolute Auto 1.56 K/mm3 (0.9-3.2); Lymphocytes Percent Auto 16.3 % (18.3-44.2); Mean Corpuscular HGB Conc 31.9 g/dl (32-36); Mean Corpuscular Hemoglobin 26.6 pg (26-34); Mean Corpuscular Volume 83.6 fl (80-100); Mean Platelet Volume 11.8 fl (7.4-10.4); Monocytes Percent Auto 10.7 % (2.6-8.5); Neutrophils Absolute Auto 6.8 K/mm3 (1.3-6.7); Neutrophils Percent Auto 70.6 % (45.5-73.1); Platelet Count Result 194 k/mm3 (150-375); Red Blood Count 3.79 M/mm3 (4.2-5.4); Red Cell Distribution Width 13.8 % (11.5-14.5); White Blood Count 9.6 K/mm3 (4.5-10.0)
--- NOTE | 2023-05-21 07:34 | P.PNOB_ITS ---
OB - PN: Subj Subjective Date/time seen: 05/21/23 07:34 Patient comments: no complaints, pain well controlled, tolerating diet and flatus present Narrative: Pt has had difficultly urinating over night. Straight catheterization was performed once. Pt still having some pressure. OB - PN: Obj Data Labs 05/21/23 05:11 Labs: Laboratory Results - last 24 hr 05/21/23 05:11 WBC 9.6 RBC 3.79 L Hgb 10.1 L Hct 31.7 L MCV 83.6 MCH 26.6 MCHC 31.9 L RDW 13.8 Plt Count 194 MPV 11.8 H Immature Gran % (Auto) 0.5 Neut % (Auto) 70.6 Lymph % (Auto) 16.3 L Wilcox % (Auto) 10.7 H Eos % (Auto) 1.5 Baso % (Auto) 0.4 Lymph # (Auto) 1.56 Wilcox # (Auto) 1.0 H Eos # (Auto) 0.1 Baso # (Auto) 0.0 Abs Immat Gran (auto) 0.05 H Absolute Neuts (auto) 6.8 H Absolute Nucleated RBC 0.0 Nucleated RBC % 0.0 OB - PN A/P Plan day: 1 Plan: routine care Comments: patient doing well H/H stable afebrile, VSS incision C/D/I ewing removed, pt had 150 cc urinary retention requiring straight catheterization. Pt was able to void this AM. Recommend ice pack to help with sw elling continue routine post op care Time Spent With Patient Time: Total time spent is greater than 50% in coordination of care (as documented) at patient's floor/unit and/or counseling patient: Time with patient: less than 15 minutes Review of Systems Constitutional: Constitutional: Reports no additional constitutional complaints Cardiovascular: Cardiovascular: Reports no additional cardiovascular complaints Respiratory: Respiratory: Reports no additional respiratory complaints Gastrointestinal: Gastrointestinal: Reports no additional gastrointestinal complaints Genitourinary: Genitourinary: Reports no additional female genitourinary complaints Exam Const: General: comfortable and no acute distress Resp: Effort & Inspection: normal respiratory effort Auscultation: clear to auscultation bilaterally Cardio: Rate: regular rate GI: GI Palp: Yes Soft to palpation, Yes Tenderness to palpation present (GI) (around incision ) and No Guarding due to palpation present (GI) A uscultation: normal bowel sounds Other: incision C/D/I, covered with Dermabond Psych: Appearance: grossly normal Mental Status: mental status grossly no rmal Affect: normal affect
[2023-05-21 08:00] VITALS: BP 105/66; PULSE 90; RESP 16; TEMP 36.7; O2SAT 100
[2023-05-21] MEDS: DOCUSATE SODIUM 100 MG CAPSULE PO ×2 (09:09→16:08)
[2023-05-21] MEDS: SIMETHICONE 80 MG TAB.CHEW PO ×2 (09:09→16:08)
[2023-05-21] MEDS: SERTRALINE HCL 50 MG TABLET PO (09:09)
[2023-05-21] MEDS: MULTIVIT/MIN/PREN/FOL AC/IRON TABLET 1 TAB PO (09:09)
[2023-05-21 12:15] VITALS: BP 110/72; PULSE 88; RESP 16; TEMP 36.7; O2SAT 100
--- NOTE | 2023-05-21 15:45 | WPDANLDPN2 ---
Anes-Prog Note L&D Date/Time: 05/21/23 15:45 Comfortable throughout: section Neuraxial method: spinal Epidural/Spinal procedure site: clean & non-tender Neuro status: Neuro function grossly intact. Cardiovascular status: normal Respiratory status: normal Airway patency: baseline Mental status: baseline Post-Op hydration status: normal Vital Signs: Last Vital Signs Temp 36.7 C 05/21/23 12:15 Pulse 88 05/21/23 12:15 Resp 16 05/21/23 12:15 BP 110/72 05/21/23 12:15 Pulse Ox 100 05/21/23 12:15 O2 Del Method Room Air 05/21/23 08:00 Pain score (VAS): 4/10 I/O: Intake & Output 05/20/23 05/21/23 05/21/23 23:59 07:59 15:59 Intake Total 750 250 Output Total 700 700 Balance 50 -450 Post-procedural complaints: none Patient feedback: Patient satisfied with anesthetic care.
--- NOTE | 2023-05-21 15:45 | WPDANLDNPN2 ---
Anes-Prog Note L&D-Neuraxial Date/Time: 05/21/23 15:45 Neuraxial medications: intrathecal PF morphine Opiod-related complaints: none Patient feedback: Patient satisfied with post-operative pain management.
[2023-05-21 19:55] VITALS: BP 129/77; PULSE 86; RESP 18; TEMP 36.8; O2SAT 100
[2023-05-21] MEDS: IBUPROFEN 600 MG TABLET PO (21:58)
[2023-05-21] MEDS: FAMOTIDINE 10 MG TABLET (22:04)
[2023-05-22] MEDS: HYDROcodone/acetaminophen (*CRX) 5-325 MG TABLET 1 TAB PO ×2 (02:33→09:17)
[2023-05-22] MEDS: IBUPROFEN 600 MG TABLET PO (04:23)
[2023-05-22] MEDS: ACETAMINOPHEN 325 MG TABLET 650 MG PO (04:23)
[2023-05-22 08:00] VITALS: PULSE 78; RESP 18; O2SAT 97
[2023-05-22 08:26] VITALS: BP 119/61; PULSE 78; RESP 18; TEMP 36.4; O2SAT 97
[2023-05-22] MEDS: DOCUSATE SODIUM 100 MG CAPSULE PO (09:16)
[2023-05-22] MEDS: SERTRALINE HCL 50 MG TABLET PO (09:16)
[2023-05-22] MEDS: MULTIVIT/MIN/PREN/FOL AC/IRON TABLET 1 TAB PO (09:17)
[2023-05-22] MEDS: SIMETHICONE 80 MG TAB.CHEW PO (09:18)
--- NOTE | 2023-05-22 09:44 | PM.OBDSVD ---
DS: Admitting Diagnosis Discharge Date 05/22/23 Admitting Diagnosis intrauterine at term undesired fertility DS: Discharge Diagnosis Discharge Diagnosis (1) Request for sterilization: Code(s): Z30.2 - Encounter for sterilization Status: Acute (2) Delivery by elective section: Code(s): O82 - Encounter for delivery without indication Status: Acute OB - DS: Summary OB Procedures : None OB Procedures Intrapartum: OB Procedures: : None Peripartum Data Delivery Method: Section Procedures: Procedures Operation Date: 05/20/23 12:00 Actual Procedure Side Surgeon p Repeat Section with Bilateral Tubal Sterilization Sudhakar Amaya MD complications: none Status at Discharge Functional status at discharge: independent ambulation Overall status at discharge: patient is progressing back to baseline Time Spent with Patient Time attestation: Total time spent providing and/or coordinating discharge services: Time spent: Less than 30 minutes Exam Const: General: comfortable and no acute distress Resp: Effort & Inspection: normal respiratory effort Auscultation: clear to auscultation bilaterally Cardio: Rate: regular rate GI: Inspection: non-distended GI Palp: Yes Soft to palpation, No Firmness to palpation present (GI), Yes Tenderness to palpation present (GI) (mild tenderness over incision ) and No Guarding due to palpation present (GI) Auscultation: normal bowel sounds Psych: Appearance: grossly normal Mental Status: mental status grossly normal DS: Data Data Completed and Pending Pending studies at discharge: Pending at discharge 05/20/23 15:49 Surgical [PTH] Routine Discharge Plan Discharge Discharging Clinician: Abdulkadir Quezada Patient Disposition: Home, Self-Care Activity: as tolerated and pelvic rest Diet: regular Patient Instructions: Antibiotic Form, (DC) Stand Alone Forms: General Discharge Information Follow-up/Referrals: Sudhakar Amaya MD [Physician] - Discharge Medications: New oxycodone-acetaminophen 5-325 mg tablet 1 tablet PO Q6H PRN (Reason: pain) Qty: 28 0RF ibuprofen 600 mg tablet 600 mg PO Q6H PRN (Reason: pain) Qty: 30 0RF Continued aspirin [Adult Low Dose Aspirin] 81 mg tablet,delayed release (DR/EC) 81 mg PO DAILY sertraline 50 mg tablet 50 mg PO DAILY Qty: 90 1RF Gummies 400 mcg-35 mg- 25 mg-5 mg tablet,chewable 1 tablet PO DAILY Auryxia 210 mg iron tablet 210 mg PO DAILY Rx Instructions: administer with a meal famotidine [Pepcid AC] 10 mg Tablet 10 mg PO DAILY PRN (Reason: Indigestion) Discontinued pyridoxine (vitamin B6) 25 mg tablet 25 mg PO DAILY Unisom (doxylamine) 25 mg tablet 25 mg PO QHS PRN (Reason: Sleep) Date of admission: 05/20/23 09:44 Primary Care Provider: Nunu Ruvalcaba Admitting Provider: Sudhakar Amaya Attending physician on admission: Sudhakar Amaya Condition: Stable
--- NOTE | 2023-05-22 11:18 | PC.NURSE ---
Patient was given the opportunity to view the discharge video Mother & Baby Care, The First Two Weeks and to ask questions. Patient declined viewing the video and has been given the mother/baby guide for home reference.
[2023-05-23 11:32] VITALS: BP 125/66; PULSE 85; RESP 18; TEMP 36.6; O2SAT 100
== END 2023-05-22 12:25 | disposition home or self-care (01) | DRG 785 ==
LOC: ANHOB2 05-22 11:23 → ANHLDR 05-23 12:42 → ANHOB2 05-23 12:42
PROVIDERS: Admitting Provider Obstetrics & Gynecology; PCP Nurse Practitioner Family; Visit Provider Student in an Organized Health Care Education/Training Program
PROC: 10D00Z1 Extraction of Products of Conception, Low, Open Approach (ICD-10-PCS; CPT 59514; principal; 2023-05-20 12:00)
DX: O34.211 Maternal care for low transverse scar from previous cesarean delivery (principal); Z37.0 Single live birth; Z3A.38 38 weeks gestation of pregnancy; Z30.2 Encounter for sterilization; O99.344 Other mental disorders complicating childbirth; F41.9 Anxiety disorder, unspecified; F43.10 Post-traumatic stress disorder, unspecified
CPT/HCPCS: 36415; 85025; 88302; A9270; J0690; J1885; J2274; J2371; J2405; J2590; J2704; J7120